=== PATIENT | female | born 1940 | race Caucasian/White ===

== ENCOUNTER 2023-12-01 12:28 | Emergency (ER) | payer OTHER, SELFPAY ==
[2023-12-01 12:30] VITALS: BP 172/77
--- NOTE | 2023-12-01 12:58 | ED.GENMED ---
History of Present Illness
General
Chief Complaint: Musculo-Skeletal Complaint
Time Seen by Provider: 12/01/23 12:58
Travel History
Have you had any contact with someone who has COVID-19?: No
Do you have any symptoms of coronavirus? Fever > 100 degrees, chills, cough, shortness of breath, sore throat, loss of taste or smell, muscle aches, or headache?: No
History of Present Illness
History of Present Illness:
HPI: Just over 2 months ago, the patient was playing pickle ball and lunged forward and since then has been having medial left groin pain. She did not have any imaging or see orthopedics for this. She has had a muscle related injury to her knee in
the past and are improved with cortisone injection. Her symptoms have been affecting her ADLs so she came in here for further evaluation. She has no significant past medical history. She has tried ibuprofen without much improvement. She has not
been on any muscle relaxants or other medications.
EXAM:
GENERAL: Well appearing in no distress
HEENT: Moist oral mucosa
NEUROLOGIC: Excellent strength all extremities, no coordination deficits
PSYCHIATRIC: Appropriate mental status, normal insight and judgement
EXTREMITIES: Nontender, no edema, moves all extremities equally, however there is minimal tenderness to the medial aspect of the left hip flexor region. She has good active range of motion against resistance into flexion at the left hip. She has
excellent function distally.
SKIN: No rash, no lesions
ED COURSE:
1:05 PM: I initially evaluated patient
NUMBER AND COMPLEXITY OF PROBLEMS ADDRESSED AT THE ENCOUNTER
� Chronic conditions affecting care: Denies any significant past medical history, has had in the past
� Acute Exacerbation and/or Progression of Chronic Illness: This is a subacute problem ongoing for the past 2 months
� Differential Diagnosis includes: Hip flexor strain, osteoarthritis of the left hip less likely, no palpable hernia on physical examination
AMOUNT AND/OR COMPLEXITY OF DATA TO BE REVIEWED AND ANALYZED
� I performed an independent evaluation of and my interpretation is:
EKG:
CT:
X-rays: Pelvis x-ray unremarkable
Laboratory Studies:
Other:
� Review of other/old records: No old records available for review in [facility]
� Clinical information was obtained by an independent historian:
� Prescriptions/Medications Considered but not given:
� Further testing considered but not performed:
RISK OF COMPLICATIONS AND/OR MORBIDITY OR MORTALITY OF PATIENT MANAGEMENT
� Social determinants of health affecting care: Lives at home in [place] and is just visiting here until the beginning of December
� Discussion with other providers:
� Escalation of care including admission/observation vs risk of discharge considered: X-ray unremarkable. I have given her contact information for local orthopedist but she says she would likely just follow-up in [place]
based on insurance reasons. Will give short course of muscle relaxer as ibuprofen has not been helping much.
Phy Exam
Physical Exam
Physical Exam:
See HPI
Course
Orders/Labs/Results
Orders:
Orders
12/01/23 13:08
CR Pelvis - 1 Or 2 Views Urgent
Comment:
Reason For Exam: worsening L groin pain
Vital Signs
Initial and Last Documented VS:
Initial Vital Signs
Temp Pulse Resp BP Pulse Ox
98.2 F 77 18 172/77 97
12/01/23 12:30 12/01/23 12:30 12/01/23 12:30 12/01/23 12:30 12/01/23 12:30
Last Documented Vital Signs
Temp Pulse Resp BP Pulse Ox
98.2 F 93 16 166/86 96
12/01/23 12:30 12/01/23 15:13 12/01/23 15:13 12/01/23 15:13 12/01/23 15:13
*Critical Care Note
Total Time (30-74mins, 75-104mins- exclusive of procedures): Not Applicable
ED Attending Note
-
Portions of this chart may have been created with voice recognition software.� Occasional wrong word or��sound alike� substitutions may have occurred due to the inherent limitations of voice recognition software.
Discharge Plan
Departure
Patient Disposition: Home (Routine Discharge)
Date of Disposition: 12/01/23
Time of Disposition: 15:39
Patient with high blood pressure during this ER visit?: Yes
Discharge Problem:
Groin strain
Instructions: Groin Strain (DC), BLOOD PRESSURE
Prescriptions:
New
cyclobenzaprine 5 mg tablet
5 - 10 mg PO BID PRN (Reason: muscle spasm) Qty: 20 0RF
Referrals:
Brenda White, DO [Active] - Follow up in 2-3 days
UNKNOWN - PT DOES,NOT KNOW [Family Provider] -
Interventions
Interventions:
*Risk Screen - Suicide Last Done: 12/01/23 12:30
*General Assessment Last Done: 12/01/23 12:30
*Neglect/Abuse Screening Last Done: 12/01/23 12:30
*ED COVID-19 Vaccine History Last Done: 12/01/23 12:30
ED-Musculoskeletal Assessment Last Done: 12/01/23 12:46
[2023-12-01 15:13] VITALS: BP 166/86
== END 2023-12-01 15:58 | disposition home or self-care (01) ==
LOC: EMR 12:28
PROVIDERS: EMERGENCY PHYSICIAN Emergency Medicine
DX: S39.011A Strain of muscle, fascia and tendon of abdomen, initial encounter (principal); X50.1XXA Overexertion from prolonged static or awkward postures, initial encounter; Y93.73 Activity, racquet and hand sports
CPT/HCPCS: 99283; 72170